=== PATIENT | male | born 1980 | race Two or more races ===

== ENCOUNTER 2022-02-06 11:47 | Outpatient (CLI) | payer OTHER | END 2022-02-06 11:48 | disposition home or self-care (01) | LOC: LAB 11:47 | PROVIDERS: ATTEND General Practice | DX: J11.1 Influenza due to unidentified influenza virus with other respiratory manifestations (principal); A49.3 Mycoplasma infection, unspecified site; J00 Acute nasopharyngitis [common cold]; Z00.01 Encounter for general adult medical examination with abnormal findings; R05.9 Cough, unspecified; Z11.52 Encounter for screening for COVID-19; Z20.822 Contact with and (suspected) exposure to COVID-19 ==

== ENCOUNTER 2025-04-18 07:14 | Outpatient (CLI) | payer OTHER ==
[~2025-04-18 07:14] MED LIST: METHOCARBAMOL500 MG PO
== END 2025-04-18 07:29 | disposition home or self-care (01) ==
LOC: SONOGRAMA 07:14
DX: F17.200 Nicotine dependence, unspecified, uncomplicated (principal); K80.20 Calculus of gallbladder without cholecystitis without obstruction; E29.1 Testicular hypofunction; H52.4 Presbyopia; N39.0 Urinary tract infection, site not specified; Z13.9 Encounter for screening, unspecified; Z12.5 Encounter for screening for malignant neoplasm of prostate; Z13.29 Encounter for screening for other suspected endocrine disorder; Z13.220 Encounter for screening for lipoid disorders; Z13.1 Encounter for screening for diabetes mellitus; Z13.0 Encounter for screening for diseases of the blood and blood-forming organs and certain disorders involving the immune mechanism; Z13.21 Encounter for screening for nutritional disorder; Z12.11 Encounter for screening for malignant neoplasm of colon; Z11.3 Encounter for screening for infections with a predominantly sexual mode of transmission